=== PATIENT | female | born 1955 | race Caucasian/White ===

== ENCOUNTER 2017-01-27 11:39 | Inpatient (IN) ==
--- NOTE | 2017-01-26 21:04 | Discharge Summary ---
<Nena Salazar E - Last Filed: 01/26/17 21:01> Date of Encounter: 01/26/17 - Discharge Diagnosis (1) Osteoarthritis of left knee Priority: Primary Status: Chronic Qualifiers: Osteoarthritis type: unspecified Qualified Code(s): M17.12 - Unilateral primary osteoarthritis, left knee (2) Hypothyroidism Priority: Secondary Status: Chronic Qualifiers: Hypothyroidism type: unspecified Qualified Code(s): E03.9 - Hypothyroidism , unspecified (3) COPD (chronic obstructive pulmonary disease) Priority: Secondary Status: Chronic Qualifiers: COPD type: unspecified COPD Qualified Code(s): J44.9 - Chronic obstructive pulmonary disease, unspecified (4) HLD (hyperlipidemia) Priority: Secondary Status: Chronic Qualifiers: Hyperlipidemia type: unspecified Qualified Code(s): E78.5 - Hyperlipidemia , unspecified (5) HTN (hypertension) Priority: Secondary Status: Chronic Qualifiers: Hypertension type: unspecified Qualified Code(s): I10 - Essential (primary ) hypertension (6) Tobacco abuse Priority: Secondary Status: Chronic (7) CAD (coronary artery disease) Priority: Secondary Status: Acute Qualifiers: Coronary Disease-Associated Artery/Lesion type: unspecified vessel or lesion type [place] vs. transplanted heart: unspecified whether [place] or transplanted heart Associated angina: angina presence unspecified Qualified Code(s): I25.10 - Atherosclerotic heart disease of [place] coronary artery without angina pectoris (8) CHF (congestive heart failure) Priority: Secondary Status: Chronic Qualifiers: Congestive heart failure type: unspecified congestive heart failure type Congestive heart failure chronicity: unspecified congestive heart failure chronicity Qualified Code(s): I50.9 - Heart failure, unspecified (9) Osteoporosis Priority: Secondary Status: Chronic Qualifiers: Osteoporosis type: unspecified Presence of current pathological fracture: unspecified Qualified Code(s): M81.0 - Age-related osteoporosis without current pathological fracture (10) MEDARDO (obstructive sleep apnea) Priority: Secondary Status: Chronic (11) Depression Priority: Secondary Status: Chronic Qualifiers: Depression Type: unspecified Qualified Code(s): F32.9 - Major depressive disorder, single episode, unspecified (12) Diabetes mellitus Priority: Secondary Status: Chronic Qualifiers: Diabetes mellitus type: type 2 Diabetes mellitus complication status: with unspecified complications Diabetes mellitus mcfp insulin use: unspecified mcfp insulin use status Qualified Code(s): E11.8 - Type 2 diabetes mellitus with unspecified complications - Discharge Medications Home Medications: Azelastine 0.1% Nasal [place] [Astelin] 1 spray NS BID 08/26/16 [History] Buspirone HCl [Buspar] 15 mg PO BID 08/26/16 [History] Carvedilol [Coreg] 6.25 mg PO BIDWM 08/26/16 [History] Esomeprazole Magnesium [Nexium] 40 mg PO DAILY 08/26/16 [History] Ezetimibe [Zetia] 10 mg PO HS 08/26/16 [History] Fluticasone Propionate Nasal [Flonase] 1 spray NS BID 08/26/16 [History] Fluticasone/Salmeterol [Advair 500-50 Diskus] 1 puff IH BID 08/26/16 [History] Furosemide [Lasix] 40 mg PO DAILY PRN 08/26/16 [History] Gabapentin [Neurontin] 1,200 mg PO TID 08/26/16 [History] Ipratropium/Albuterol Sulfate [Combivent Respimat Inhal [place]] 1 puff IH QID [History] Melatonin [Melatin] 3 mg PO HS PRN 08/26/16 [History] Montelukast [Singulair] 10 mg PO HS 08/26/16 [History] Quetiapine Fumarate [Seroquel] 200 mg PO HS 08/26/16 [History] Ranitidine HCl [Heartburn Relief] 150 mg PO DAILY 08/26/16 [History] Rosuvastatin [Crestor] 40 mg PO HS 08/26/16 [History] Topiramate [Topamax] 50 mg PO HS 08/26/16 [History] Trazodone HCl 300 mg PO HS 08/26/16 [History] Aspirin Enteric Coated [Aspirin EC] 325 mg PO DAILY #21 tablet. 01/26/17 [Rx] OxyCODONE Immed Rel [Roxicodone 5 MG] 5 mg PO Q6HR PRN 7 Days #28 tablet [Rx] Aspirin [Lo-Dose Aspirin EC] 81 mg PO HS 01/27/17 [History] Levothyroxine [Synthroid] 150 mcg PO DAILY 01/27/17 [History] PARoxetine HCl [Paroxetine HCl] 20 mg PO DAILY 01/27/17 [History] Allergies/Adverse Reactions: 3 Allergy/AdvReac Type Severity Reaction Status Date / Time Sulfa (Sulfonamide Allergy Hives Verified 01/12/17 15:55 Antibiotics) aloe vera [From Flexall] AdvReac Gastrointestinal Verified 01/12/17 15:55 Upset celecoxib [From Celebrex] AdvReac Gastrointestinal Verified 01/12/17 15:55 Upset hydroxyzine [From Vistaril] AdvReac Gastrointestinal Verified 01/12/17 15:55 Upset menthol [From Flexall] AdvReac Gastrointestinal Verified 01/12/17 15:55 Upset Tizanidine [From Zanaflex] AdvReac Gastrointestinal Verified 01/12/17 15:55 Upset vitamin E (d-alpha AdvReac Gastrointestinal Verified 01/12/17 15:55 tocopherol) Upset [From Flexall] Primary care physician: Juanita Varela MD - Patient Status Disposition: Home, Self-Care Condition: Good - Discharge Instructions Follow Up With: Juanita Varela MD [Primary Care Provider] - - Hospital Course Hospital course: Ms. Ochoa is a 61 year old female - Time Spent with Patient Total time spent providing and/or coordinating discharge services: - VTE Documentation of Mechanical Device: Venous foot pump, device <Keyshawn Tobar - Last Filed: 01/29/17 06:28> Date of Encounter: 01/29/17 Time of Encounter: 06:27 - Discharge Diagnosis (1) Obesity (BMI 35.0-39.9 without comorbidity) Priority: Secondary Status: Chronic (2) Osteoarthritis of left knee Priority: Primary Status: Chronic Qualifiers: Osteoarthritis type: unspecified Qualified Code(s): M17.12 - Unilateral primary osteoarthritis, left knee (3) Hypothyroidism Priority: Secondary Status: Chronic Qualifiers: Hypothyroidism type: unspecified Qualified Code(s): E03.9 - Hypothyroidism , unspecified (4) COPD (chronic obstructive pulmonary disease) Priority: Secondary Status: Chronic Qualifiers: COPD type: unspecified COPD Qualified Code(s): J44.9 - Chronic obstructive pulmonary disease, unspecified (5) HLD (hyperlipidemia) Priority: Secondary Status: Chronic Qualifiers: Hyperlipidemia type: unspecified Qualified Code(s): E78.5 - Hyperlipidemia , unspecified (6) HTN (hypertension) Priority: Secondary Status: Chronic Qualifiers: Hypertension type: unspecified Qualified Code(s): I10 - Essential (primary ) hypertension (7) Tobacco abuse Priority: Secondary Status: Chronic (8) CAD (coronary artery disease) Priority: Secondary Status: Acute Qualifiers: Coronary Disease-Associated Artery/Lesion type: unspecified vessel or lesion type [place] vs. transplanted heart: unspecified whether [place] or transplanted heart Associated angina: angina presence unspecified Qualified Code(s): I25.10 - Atherosclerotic heart disease of [place] coronary artery without angina pectoris (9) CHF (congestive heart failure) Priority: Secondary Status: Chronic Qualifiers: Congestive heart failure type: unspecified congestive heart failure type Congestive heart failure chronicity: unspecified congestive heart failure chronicity Qualified Code(s): I50.9 - Heart failure, unspecified (10) Osteoporosis Priority: Secondary Status: Chronic Qualifiers: Osteoporosis type: unspecified Presence of current pathological fracture: unspecified Qualified Code(s): M81.0 - Age-related osteoporosis without current pathological fracture (11) MEDARDO (obstructive sleep apnea) Priority: Secondary Status: Chronic (12) Depression Priority: Secondary Status: Chronic Qualifiers: Depression Type: unspecified Qualified Code(s): F32.9 - Major depressive disorder, single episode, unspecified (13) Diabetes mellitus Priority: Secondary Status: Chronic Qualifiers: Diabetes mellitus type: type 2 Diabetes mellitus complication status: with unspecified complications Diabetes mellitus mcfp insulin use: unspecified mcfp insulin use status Qualified Code(s): E11.8 - Type 2 diabetes mellitus with unspecified complications (14) Status post total left knee replacement Priority: Primary Status: Chronic (15) Acute blood loss anemia Priority: Primary Status: Acute Primary care physician: Juanita Varela MD - Patient Status Functional capacity at discharge: uses cane/walker Overall status at discharge: patient is progressing back to baseline - Hospital Course Hospital course: Ms. Ochoa is a 61 year old female Status post left total knee replacement. The patient had an uneventful postoperative course. They received antibiotics and physical therapy and were discharged in stable condition. There will follow -up in the office in 2 weeks. Postop anemia A symptomatically - Time Spent with Patient Total time spent providing and/or coordinating discharge services:
--- NOTE | 2017-01-27 11:58 | Anesthesia Evaluation PreOp ---
Date of Encounter: 01/27/17 Time of Encounter: 12:08 - Past History Planned Operation: Left total knee arthroplasty Cardiac History: CHF, HTN, Hyperlipidemia, Cardiac Stent, Other (able to walk up a flight of stairs) Pulmonary History: Smoker, COPD HOME INSPECTOR History: Denies Any Significant HX Other Medical History: Other (Rheumatoid arthritis, BMI 39) Anesthesia History: No Prior Anesthetic Complications (except slow to emerge last time) Alcohol Use: none Drug use: none Medications and Allergies Azelastine 0.1% Nasal [place] [Astelin] 1 spray NS BID 08/26/16 [History] Buspirone HCl [Buspar] 7.5 mg PO DAILY 08/26/16 [History] Carvedilol [Coreg] 6.25 mg PO BIDWM 08/26/16 [History] Clopidogrel [Plavix] 75 mg PO DAILY 08/26/16 [History] Esomeprazole Magnesium [Nexium] 40 mg PO DAILY 08/26/16 [History] Ezetimibe [Zetia] 10 mg PO DAILY 08/26/16 [History] Fluticasone Propionate Nasal [Flonase] 1 spray NS BID 08/26/16 [History] Fluticasone/Salmeterol [Advair 500-50 Diskus] 1 puff IH BID 08/26/16 [History] Furosemide [Lasix] 40 mg PO BID 08/26/16 [History] Gabapentin [Neurontin] 450 mg PO DAILY 08/26/16 [History] Ipratropium/Albuterol Sulfate [Combivent Respimat Inhal [place]] 1 puff IH QID [History] Melatonin [Melatin] 3 mg PO HS PRN 08/26/16 [History] Montelukast [Singulair] 10 mg PO DAILY 08/26/16 [History] Paroxetine [Paxil] 30 mg PO DAILY 08/26/16 [History] Quetiapine Fumarate [Seroquel] 200 mg PO DAILY 08/26/16 [History] Ranitidine HCl [Heartburn Relief] 150 mg PO DAILY 08/26/16 [History] Rosuvastatin [Crestor] 40 mg PO HS 08/26/16 [History] Tizanidine HCl 2 mg PO DAILY 08/26/16 [History] Topiramate [Topamax] 50 mg PO DAILY 08/26/16 [History] Trazodone HCl 150 - 450 mg PO HS 08/26/16 [History] Aspirin Enteric Coated [Aspirin EC] 325 mg PO DAILY #21 tablet. 01/26/17 [Rx] OxyCODONE Immed Rel [Roxicodone 5 MG] 5 mg PO Q6HR PRN 7 Days #28 tablet [Rx] 3 Allergy/AdvReac Type Severity Reaction Status Date / Time Sulfa (Sulfonamide Allergy Hives Verified 01/12/17 15:55 Antibiotics) aloe vera [From Flexall] AdvReac Gastrointestinal Verified 01/12/17 15:55 Upset celecoxib [From Celebrex] AdvReac Gastrointestinal Verified 01/12/17 15:55 Upset hydroxyzine [From Vistaril] AdvReac Gastrointestinal Verified 01/12/17 15:55 Upset menthol [From Flexall] AdvReac Gastrointestinal Verified 01/12/17 15:55 Upset Tizanidine [From Zanaflex] AdvReac Gastrointestinal Verified 01/12/17 15:55 Upset vitamin E (d-alpha AdvReac Gastrointestinal Verified 01/12/17 15:55 tocopherol) Upset [From Flexall] - Meds/Allergy Pre-op Review Medications Reviewed: Yes Allergies Reviewed: Yes Beta Blockers on Current Med List: No Anesthesia Results - Labs Laboratory Tests 01/12/17 01/12/17 01/12/17 16:10 16:10 16:10 WBC 9.6 Hgb 13.0 Hct 40.5 Plt Count 245 PT 11.5 INR 1.1 APTT 26.1 Sodium 141 Potassium 3.8 Chloride 109 Carbon Dioxide 23 BUN 11 Creatinine 0.86 Est GFR ( Amer) > 60 Est GFR (Non-Af Amer) > 60 BUN/Creatinine Ratio 13 - Imaging EKG: report reviewed, image reviewed (SINUS RHYTHM ST DEVIATION AND MODERATE T- WAVE ABNORMALITY, CONSIDER ANTEROLATERAL ISCHEMIA ST DEVIATION AND MODERATE T- WAVE ABNORMALITY, CONSIDER INFERIOR ISCHEMIA) Additional studies: Cardiology clearance from Dr. Goyal, as patient has chronic EKG changes and was recently seen in clinic. Anesthesia Exam Last Vital Signs Temp 98.2 F 01/27/17 11:56 Pulse 56 01/27/17 11:56 Resp 18 01/27/17 11:56 BP 137/71 01/27/17 11:56 Pulse Ox 97 01/27/17 11:56 Weight: 103 kg - HEENT Pupil (Motor): Pupils equal, EOMI Mallampati: III Teeth: Edentulous Oral Opening: Greater than 3 - HOME INSPECTOR LOC: Oriented HOME INSPECTOR Motor: Normal RUE, Normal LUE, Normal RLE, Normal LLE, Normal Face - Cardiac Rhythm: Regular Murmur: None - Pulmonary Breath Sounds: bilateral Clear Respiratory Effort: Symmetrical Anesthesia Assess/Plan ASA Score: 3 Modified [place] Scale for Level of Consciousness: Cooperative, oriented, and tranquil Anesthetic Plan: General, Regional Monitoring Plan: Standard Monitors Recovery Plan: PACU
[2017-01-27] MEDS ORDERED: CeFAZolin Pre 2,000 MG/100 ML 2,000 MG/100 ML BAG IVPB ONE (11:59)
[2017-01-27] MEDS ORDERED: Plasma-Lyte A (PH 7.4) 1,000 ML IVC SCH (12:00)
[2017-01-27] MEDS ORDERED: Albuterol 2.5 MG/3 ML NEBULIZER ONE (12:12)
[2017-01-27] MEDS ORDERED: Albuterol 2.5 MG/3 ML NEBULIZER IH ONE (12:14)
[2017-01-27] MEDS ORDERED: Dexamethasone 4 MG/ML VIAL ONE (12:23)
[2017-01-27] MEDS ORDERED: Ondansetron 4 MG/2 ML VIAL ONE (12:23)
[2017-01-27] MEDS ORDERED: Lidocaine -MPF 2% 2 ML VIAL ONE (12:23)
[2017-01-27] MEDS ORDERED: *HR* Propofol 200 MG/20 ML VIAL IVP ONE (12:23)
[2017-01-27] MEDS ORDERED: *HR* Midazolam HCl 2 MG/2 ML VIAL ONE (12:23)
[2017-01-27] MEDS ORDERED: *HR* FentaNYL (PF) 100 MCG/2 ML VIAL ONE (12:23)
--- NOTE | 2017-01-27 12:35 | History & Physical Report ---
Date of Encounter: 01/27/17 Time of Encounter: 12:35 24 Hour HP Update - Instructions Instructions: If the History and Physical is less than 30 days old and was completed prior to A.M. admission and or procedure and has NOT been updated on calendar day of procedure please complete this update prior to performing procedure. - Update Patient reports changes in Medical Condition: No Changes in examination, assessment, or condition: No Changes in Medication: No Preop tests/diagnostics Reviewed: Yes Surgery Remains Indicated: Yes Consent for Planned Operative Procedure(s) Verified: Yes - Pre-Operative Checklist Preoperative Checklist Indicated: No Prophylactic Antibiotic Ordered: Yes Is VTE Prophylaxis Indicated?: Yes
[2017-01-27] MEDS ORDERED: *HR* Midazolam HCl 5 MG/5 ML VIAL IVP ONE (12:54)
[2017-01-27] MEDS ORDERED: ROPIVACAINE HCL/PF 0.5% 30 ML VIAL ONE (12:54)
--- NOTE | 2017-01-27 13:15 | Anesthesia Procedures ---
Date of Encounter: 01/27/17 Time of Encounter: 13:13 Procedures: Anesthesia - Nerve Block Procedure Date: 01/27/17 Time: 13:13 Allergies/Adv Reactions: sulfa, celecoxib, aloe vera, vistaril, menthol, zanaflex, vit e Pre-op Diagnosis: Left knee pain Surgical Procedure: Left total knee Checklist: Correct Patient Identifier, Correct procedure, History checked Correct side: Left Monitor Applied: EKG, BP, Pulse Oximetry Supplemental Oxygen via Nasal Cannula (L/min): 2 Sedation: Versed (mg): 2 Indication: Post Op Analgesia Pre-op Neuro Deficits: No Block Type: Femoral, Other (IPAC) Sterile Technique: Yes Ultrasound used: Yes Anatomy identified: Yes Visual spread of Local: Yes Neuro Stimulation: Yes Nerve Stimulator Range: 0.2 - 0.4 mA Blood on Needle Aspiration: No Smooth Injection of Local: Yes Pain with Injection of Local: No Prep: Chlorhexadine Needle: 22 x 50 mm Stimuplex Local: Ropivacaine Volume (cc): 40 Number of Attempts: 1 Complications: None/effective block
--- NOTE | 2017-01-27 14:12 | Orthopedic Operative Note ---
Date of procedure: 01/27/17 Pre-op diagnosis: Left knee arthritis Post-op diagnosis: same Procedure: Procedure: Left Total knee replacement Estimated blood loss: 400 cc Hardware: Metal and polyethylene replacement. Arthrex Femur: 5 Tibia: 5 PS insert: 18 Patella: 34 Exam Under anesthesia: Full flexion and extension no instability Procedural Notes: Grade 3 arthritic changes all 3 compartments. Operative procedure: The patient was brought to the operating room and placed on the operating room table. After general anesthesia was administered the operative knee was examined. Findings were noted in the exam under anesthesia. The operative extremity was prepped and draped in sterile surgical fashion. The patient received IV antibiotics prior to skin incision. A standard midline incision was made centered over the patella. The incision was made through the skin and subcutaneous tissue. A medial parapatellar tendon approach was performed. Care was taken to preserve tissue along the medial aspect of the patella. And to protect the patella tendon. The deep MCL was released off the medial tibia. The infra patella fat pad was excised. Knee was brought into flexion. Patient noted to have grade 3 arthritic changes all 3 compartments. The entry hole was made for the intramedullary femoral guide. The guide was seated in 6 degrees of valgus. Anterior cut was made followed by the distal cut. The ACL the PCL the medial and the lateral menisci were excised. The tibia was subluxed forward. The entry hole was made for the intramedullary tibial guide. Guide was seated to resect 2 mm off the more abnormal side. The knee was brought into flexion the distal femur was sized to a 5. The femoral guide was seated, the anterior cut was made followed by the posterior condylar cut, followed by the chamfer cuts. The finishing guide was seated the box cut was made and the lug holes were drilled. The tibia was sized to a 5, the tibial tray was seated and prepared with the large drill followed by the fin cutter. Trial reduction revealed full extension no varus valgus instability with the appropriate 18 PS Bette. The patella was everted and cut was made at the level of the insertion of the quadriceps and patella tendon. The patella was sized to 40 the guide was seated and the lug holes are drilled. Trial reduction revealed excellent patella tracking. All trial components were removed all bony surfaces were irrigated. The tibia was cemented first followed by the femur. The 18 PS Bette was seated and the knee was brought into full extension. The patella was cemented and held in place with the patellar holding clamp. After the cement had hardened, the knee sat for 2 minutes with a Betadine saline solution. The knee was closed by the PA. The knee was then irrigated out with 2 L of pulse irrigation. The extensor mechanism was closed with #2 FiberWire suture and #2 PDS suture. The subcutaneous tissue was then irrigated and closed deep with #1 PDS suture superficially with 0 PDS suture and skin was closed with skin yamini. The patient was then placed in a sterile dressing and a postoperative brace extubated and transferred to recovery room in stable condition. Anesthesia: GETA Surgeon: Keyshawn Tobar Condition: stable Disposition: PACU
[2017-01-27] MEDS ORDERED: *HR* Labetalol 20 MG/4 ML SYRINGE IVP PRN (14:31)
[2017-01-27] MEDS ORDERED: Ondansetron 4 MG/2 ML VIAL IVP ONE (14:31)
[2017-01-27] MEDS ORDERED: Ringers Solution, Lactated 1,000 ML IVC SCH (14:45)
[2017-01-27] MEDS: *HR* HYDROmorphone (PF) 1 MG/ML SYRINGE IVP PRN ×4 (14:51→15:38)
[2017-01-27 15:11] LABS: Hemoglobin 11.1 g/dL (11.5-15.4)
--- NOTE | 2017-01-27 15:27 | Anesthesia Evaluation Post Op ---
Date of Encounter: 01/27/17 Time of Encounter: 15:27 - Vital Signs Vital Signs: Last Vital Signs Temp 97.2 F L 01/27/17 15:15 Pulse 60 01/27/17 15:15 Resp 16 01/27/17 15:15 BP 124/61 01/27/17 15:15 Pulse Ox 94 01/27/17 15:15 - Lungs Lungs: Clear Ascult./Percussion - Airway Airway: Non-obstructed - Cardiovascular Regular Rate - Mental Status Mental Status: Alert & Oriented, Answers Appropriately - Pain Pain Scale: 4 - Nausea Vomiting Nausea Vomiting: Not Present - Hydration Hydration: NPO - Discharge PostOp Status: Transfer Patient to floor
[2017-01-27] MEDS ORDERED: Melatonin 3 MG TABLET PO PRN (17:11)
[2017-01-27] MEDS ORDERED: MOM Conc 10 ML UD.LIQ PO PRN (17:11)
[2017-01-27] MEDS ORDERED: Sennosides 8.6 MG TABLET PO PRN (17:11)
[2017-01-27] MEDS ORDERED: Dextrose Gel 15 GM PO PRN ×2 (17:11)
[2017-01-27] MEDS ORDERED: D5% in Water 1,000 ML IVC PRN (17:11)
[2017-01-27] MEDS ORDERED: *HR* Dextrose 50 % in Water (Syg) 50 ML SYRINGE IVP PRN (17:11)
[2017-01-27] MEDS ORDERED: Naloxone 0.4 MG/ML INJ IVP PRN (17:11)
[2017-01-27] MEDS ORDERED: ceFAZolin 2,000 MG in D5% in Water 100 ML IVPB SCH (17:11)
[2017-01-27] MEDS ORDERED: *HR* OxyCODONE Immed Rel 5 MG TABLET PO PRN (17:11)
[2017-01-27] MEDS ORDERED: Ondansetron 4 MG/2 ML VIAL IVP PRN (17:11)
[2017-01-27] MEDS ORDERED: Furosemide 40 MG TABLET PO PRN (17:11)
[2017-01-27] MEDS: Gabapentin 400 MG CAPSULE PO SCH ×2 (17:51→21:40)
[2017-01-27] MEDS ORDERED: *HR* Enoxaparin 30 MG/0.3 ML SYRINGE SQ SCH (18:00)
[2017-01-27] MEDS: Insulin LISPRO 300 UNITS/3 ML VIAL SQ SCH ×2 (18:45→21:52)
[2017-01-27] MEDS: *HR* OxyCODONE Immed Rel 5 MG TABLET PO PRN (18:53)
[2017-01-27] MEDS: *HR* Enoxaparin 30 MG/0.3 ML SYRINGE SQ SCH (18:53)
[2017-01-27] MEDS ORDERED: Temazepam 15 MG CAPSULE PO PRN (21:00)
[2017-01-27] MEDS: Aspirin Enteric Coated 81 MG Tablet PO SCH (21:40)
[2017-01-27] MEDS: Topiramate 25 MG TABLET PO SCH (21:40)
[2017-01-27] MEDS: traZODone 50 MG TABLET PO SCH (21:42)
[2017-01-27] MEDS: Fluticasone Propionate Nasal 50 MCG/SPRAY BOTTLE NS SCH (21:44)
[2017-01-27] MEDS: ceFAZolin 2,000 MG in D5% in Water 100 ML IVPB SCH (21:49)
[2017-01-27] MEDS: Azelastine 0.1% Nasal Spray 30 ML BOTTLE NS SCH (21:50)
[2017-01-27] MEDS: Budesonide/Formoterol 160/4.5 MDI IH SCH (22:57)
[2017-01-27] MEDS ORDERED: Ipratropium/Albuterol Neb 3 ML IH SCH (23:00)
[2017-01-27] MEDS: Ringers Solution, Lactated 1,000 ML IVC SCH (23:48)
[2017-01-28] MEDS: *HR* OxyCODONE Immed Rel 5 MG TABLET PO PRN ×3 (01:18→18:33)
[2017-01-28] MEDS: Ipratropium/Albuterol Neb 3 ML IH SCH ×4 (04:14→21:35)
[2017-01-28] MEDS: ceFAZolin 2,000 MG in D5% in Water 100 ML IVPB SCH (05:01)
[2017-01-28] MEDS: *HR* Enoxaparin 30 MG/0.3 ML SYRINGE SQ SCH ×2 (05:02→17:08)
[2017-01-28 05:09] LABS: Hematocrit 32.4 % (35.3-44.9); Hemoglobin 10.7 g/dL (11.5-15.4)
[2017-01-28 05:23] LABS: BUN/Creatinine Ratio 10 (6-26); Blood Urea Nitrogen 9 mg/dL (7-20); Calcium 8.7 mg/dL (8.6-10.8); Carbon Dioxide 24 mEq/L (19-29); Chloride 109 mEq/L (98-109); Glucose 152 mg/dL (70-99); Osmolality,Calculated 294 (280-300); Potassium 4.3 mEq/L (3.5-4.5); Sodium 141 mEq/L (136-145); eGFR For African Americans > 60 (> 60); eGFR For Non-African Americans > 60 (> 60)
--- NOTE | 2017-01-28 06:56 | Orthopedics Progress Note ---
Date of Encounter: 01/28/17 Time of Encounter: 06:56 - Assessment and Plan (1) Obesity (BMI 35.0-39.9 without comorbidity) Current Visit: Yes Status: Chronic (2) Osteoarthritis of left knee Current Visit: No Status: Chronic Qualifiers: Osteoarthritis type: unspecified Qualified Code(s): M17.12 - Unilateral primary osteoarthritis, left knee (3) Hypothyroidism Current Visit: No Status: Chronic Qualifiers: Hypothyroidism type: unspecified Qualified Code(s): E03.9 - Hypothyroidism , unspecified (4) COPD (chronic obstructive pulmonary disease) Current Visit: No Status: Chronic Qualifiers: COPD type: unspecified COPD Qualified Code(s): J44.9 - Chronic obstructive pulmonary disease, unspecified (5) HLD (hyperlipidemia) Current Visit: No Status: Chronic Qualifiers: Hyperlipidemia type: unspecified Qualified Code(s): E78.5 - Hyperlipidemia , unspecified (6) HTN (hypertension) Current Visit: No Status: Chronic Qualifiers: Hypertension type: unspecified Qualified Code(s): I10 - Essential (primary ) hypertension (7) Tobacco abuse Current Visit: No Status: Chronic (8) CAD (coronary artery disease) Current Visit: No Status: Acute Qualifiers: Coronary Disease-Associated Artery/Lesion type: unspecified vessel or lesion type [place] vs. transplanted heart: unspecified whether [place] or transplanted heart Associated angina: angina presence unspecified Qualified Code(s): I25.10 - Atherosclerotic heart disease of [place] coronary artery without angina pectoris (9) CHF (congestive heart failure) Current Visit: No Status: Chronic Qualifiers: Congestive heart failure type: unspecified congestive heart failure type Congestive heart failure chronicity: unspecified congestive heart failure chronicity Qualified Code(s): I50.9 - Heart failure, unspecified (10) Osteoporosis Current Visit: No Status: Chronic Qualifiers: Osteoporosis type: unspecified Presence of current pathological fracture: unspecified Qualified Code(s): M81.0 - Age-related osteoporosis without current pathological fracture (11) MEDARDO (obstructive sleep apnea) Current Visit: No Status: Chronic (12) Depression Current Visit: No Status: Chronic Qualifiers: Depression Type: unspecified Qualified Code(s): F32.9 - Major depressive disorder, single episode, unspecified (13) Diabetes mellitus Current Visit: No Status: Chronic Qualifiers: Diabetes mellitus type: type 2 Diabetes mellitus complication status: with unspecified complications 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 Afebrile vital signs stable. Operative extremity: Neurovascularly intact Dressing clean dry and intact [place] nontender Assessment and plan: Continue with postoperative care Hematocrit 32 Objective Vital signs: Vital Signs Temp Pulse Resp BP Pulse Ox 01/28/17 03:58 98.1 F 50 16 138/72 94 01/27/17 22:46 98.3 F 50 16 118/75 93 01/27/17 20:30 98.9 F 52 16 127/62 96 01/27/17 20:09 98.1 F 70 17 162/81 93 01/27/17 19:34 98.7 F 65 18 148/84 01/27/17 18:31 97.8 F 56 16 116/62 95 01/27/17 17:30 97.4 F L 65 15 111/69 97 01/27/17 17:01 97.5 F L 96 16 116/80 95 01/27/17 16:35 97.7 F 61 14 115/66 97 01/27/17 16:25 57 14 115/71 96 01/27/17 16:15 97.7 F 54 14 117/63 94 01/27/17 16:05 56 14 114/69 96 01/27/17 15:55 58 14 113/61 96 01/27/17 15:45 97.6 F 62 14 121/74 96 01/27/17 15:35 61 14 112/67 94 01/27/17 15:25 58 14 113/60 94 01/27/17 15:15 97.2 F L 60 16 124/61 94 01/27/17 15:05 59 16 127/73 96 01/27/17 14:55 60 16 134/63 99 01/27/17 14:45 97.6 F 63 16 126/74 99 01/27/17 13:09 54 16 129/67 96 01/27/17 12:53 50 18 134/74 97 01/27/17 11:56 98.2 F 56 18 137/71 97 Intake and Output 01/27/17 01/27/17 01/28/17 15:59 23:59 07:59 Intake Total 100 / 100 350 / 350 200 / 200 Output Total 400 / 400 200 / 200 0 / 0 Balance -300 / -300 150 / 150 200 / 200 Intake: IV Fluids 100 / 100 100 / 100 Ancef Premix 2,000 MG/100 ML 2, 100 / 100 000 mg In 100 ml @ 200 mls/hr IVPB PREOP ONE Rx#:[id number] Ancef 2,000 MG In Dextrose 5% 100 / 100 100 ML @ 200 mls/hr IVPB Q8H ALYSSA Rx#:[id number] Oral 250 / 250 200 / 200 Output: Urine 200 / 200 0 / 0 Estimated Blood Loss 400 / 400 Other: # Voids 1 Weight 103.419 kg 104.04 kg Blood Glucose* 265 Patient Weight 01/28/17 23:59 Weight 104.04 kg - Labs CBC & BMP: 01/28/17 04:48 01/28/17 04:48 Labs: Abnormal lab results Hgb 10.7 g/dL (11.5-15.4) L 01/28/17 04:48 Hct 32.4 % (35.3-44.9) L 01/28/17 04:48 Glucose 152 mg/dL (70-99) H 01/28/17 04:48 POC Glucose 265 (58-89) H 01/27/17 21:12 - VTE Documentation of Mechanical Device: Venous foot pump, device Consult Discharge Plan - Plan Referrals: Juanita Varela MD [Primary Care Provider] -
[2017-01-28] MEDS: Famotidine 20 MG TABLET PO SCH (08:52)
[2017-01-28] MEDS: Gabapentin 400 MG CAPSULE PO SCH ×3 (08:52→21:41)
[2017-01-28] MEDS: Azelastine 0.1% Nasal Spray 30 ML BOTTLE NS SCH ×2 (08:53→21:51)
[2017-01-28] MEDS: Insulin LISPRO 300 UNITS/3 ML VIAL SQ SCH ×4 (08:53→21:46)
[2017-01-28] MEDS: Fluticasone Propionate Nasal 50 MCG/SPRAY BOTTLE NS SCH ×2 (08:54→21:52)
[2017-01-28] MEDS: Budesonide/Formoterol 160/4.5 MDI IH SCH ×2 (10:31→21:35)
[2017-01-28] MEDS: Ringers Solution, Lactated 1,000 ML IVC SCH ×2 (11:25→14:33)
--- NOTE | 2017-01-28 12:25 | Event Note ---
Date of Encounter: 01/28/17 Time of Encounter: 12:23 PCR - Left TKR 01/27/17 POD#.1 Labs: H/H - stable Patient seen at bedside. Pain control: adequate Participating in PT. All questions and concerns addressed. Educated on use of incentive spirometer, ambulation, and hydration. Patient educated on post-operative restrictions and care. Addressed: see above D/C plan: [facility] - [place]
[2017-01-28] MEDS: Nicotine 21 MG PATCH.TD24 TD SCH (18:33)
[2017-01-28] MEDS: *HR* HYDROmorphone (PF) 1 MG/ML SYRINGE IVP PRN (19:25)
[2017-01-28] MEDS: Aspirin Enteric Coated 81 MG Tablet PO SCH (21:40)
[2017-01-28] MEDS: Topiramate 25 MG TABLET PO SCH (21:41)
[2017-01-28] MEDS: traZODone 50 MG TABLET PO SCH (21:41)
--- NOTE | 2017-01-28 22:05 | Physician Discharge Referral ---
<Nena Salazar E - Last Filed: 01/28/17 22:05> [facility] Referral Info Transfer To: ON [facility] OF [facility] Provider in Charge: Dr. Keyshawn Tobar - Diagnosis (1) Osteoarthritis of left knee Priority: Primary Status: Chronic (2) Hypothyroidism Priority: Secondary Status: Chronic (3) COPD (chronic obstructive pulmonary disease) Priority: Secondary Status: Chronic (4) HLD (hyperlipidemia) Priority: Secondary Status: Chronic (5) HTN (hypertension) Priority: Secondary Status: Chronic (6) Tobacco abuse Priority: Secondary Status: Chronic (7) CAD (coronary artery disease) Priority: Secondary Status: Acute (8) CHF (congestive heart failure) Priority: Secondary Status: Chronic (9) Osteoporosis Priority: Secondary Status: Chronic (10) MEDARDO (obstructive sleep apnea) Priority: Secondary Status: Chronic (11) Depression Priority: Secondary Status: Chronic (12) Diabetes mellitus Priority: Secondary Status: Chronic Expected Duration of Placement: <30 days Prognosis: Good Aware of Diagnosis: Patient Aware of Prognosis: Patient - Transfer Medications Home Medications: Azelastine 0.1% Nasal [place] [Astelin] 1 spray NS BID 08/26/16 [History] Buspirone HCl [Buspar] 15 mg PO BID 08/26/16 [History] Carvedilol [Coreg] 6.25 mg PO BIDWM 08/26/16 [History] Esomeprazole Magnesium [Nexium] 40 mg PO DAILY 08/26/16 [History] Ezetimibe [Zetia] 10 mg PO HS 08/26/16 [History] Fluticasone Propionate Nasal [Flonase] 1 spray NS BID 08/26/16 [History] Fluticasone/Salmeterol [Advair 500-50 Diskus] 1 puff IH BID 08/26/16 [History] Furosemide [Lasix] 40 mg PO DAILY PRN 08/26/16 [History] Gabapentin [Neurontin] 1,200 mg PO TID 08/26/16 [History] Ipratropium/Albuterol Sulfate [Combivent Respimat Inhal [place]] 1 puff IH QID [History] Melatonin [Melatin] 3 mg PO HS PRN 08/26/16 [History] Montelukast [Singulair] 10 mg PO HS 08/26/16 [History] Quetiapine Fumarate [Seroquel] 200 mg PO HS 08/26/16 [History] Ranitidine HCl [Heartburn Relief] 150 mg PO DAILY 08/26/16 [History] Rosuvastatin [Crestor] 40 mg PO HS 08/26/16 [History] Topiramate [Topamax] 50 mg PO HS 08/26/16 [History] Trazodone HCl 300 mg PO HS 08/26/16 [History] Aspirin Enteric Coated [Aspirin EC] 325 mg PO DAILY #21 tablet. 01/26/17 [Rx] OxyCODONE Immed Rel [Roxicodone 5 MG] 5 mg PO Q6HR PRN 7 Days #28 tablet [Rx] Aspirin [Lo-Dose Aspirin EC] 81 mg PO HS 01/27/17 [History] Levothyroxine [Synthroid] 150 mcg PO DAILY 01/27/17 [History] PARoxetine HCl [Paroxetine HCl] 20 mg PO DAILY 01/27/17 [History] Allergies/Adverse Reactions: 3 Allergy/AdvReac Type Severity Reaction Status Date / Time Sulfa (Sulfonamide Allergy Hives Verified 01/12/17 15:55 Antibiotics) aloe vera [From Flexall] AdvReac Gastrointestinal Verified 01/12/17 15:55 Upset celecoxib [From Celebrex] AdvReac Gastrointestinal Verified 01/12/17 15:55 Upset hydroxyzine [From Vistaril] AdvReac Gastrointestinal Verified 01/12/17 15:55 Upset menthol [From Flexall] AdvReac Gastrointestinal Verified 01/12/17 15:55 Upset Tizanidine [From Zanaflex] AdvReac Gastrointestinal Verified 01/12/17 15:55 Upset vitamin E (d-alpha AdvReac Gastrointestinal Verified 01/12/17 15:55 tocopherol) Upset [From Flexall] - Respiratory Orders Smoking Cessation: Smoking cessation has been advised. For more information, call the [employer] Tobacco Quit Line at 8-913-DHIN-NOW. - Ancillary Orders May use pressure relief devices daily prn, May go on VANESSA w/family/respon democrat w /meds at nurse discretion PRN, May consult with Dentist, Food Clerk, [employer] PRN - Mobility Orders Chair, Ambulate - Rehabiliation Orders Rehab Potential: Good Rehab Orders: ROM Exercises, Evaluation for Physical Therapy, Evaluation for Occupational Therapy Other: Total Knee replacement Precautions x 6 weeks Apply cold therapy wrap 3-6x/day for 20 minutes at a time. Encourage ambulation throughout the day and incentive spirometer 10x/hour. Elevate affected extremity above heart as tolerated. Brace: Wear knee immobilizer at night x 2 weeks. - Treatments Skin tear care topically daily PRN per policy List/Other: Opsite dressing, leave intact until first post-operative visit. If dressing becomes greater than 50% saturated, contact office, remove dressing and place appropriate dressing in its place. Do not allow for dressing to get wet. Stone in place, plan to remove at post-operative day #14-16. - Diet Orders Regular CERTIFICATION: I certify that the transfer of the above named patient to an Extended Care Facility is necessary for the continuing treatment of the diagnosis listed. The above information is true and accurate reflection of patient's current condition. Confidential - Redisclosure prohibited without a patient's written consent. <Keyshawn Tobar - Last Filed: 02/01/17 13:49> - Diagnosis (1) Obesity (BMI 35.0-39.9 without comorbidity) Status: Chronic (2) Osteoarthritis of left knee Status: Chronic (3) Hypothyroidism Status: Chronic (4) COPD (chronic obstructive pulmonary disease) Status: Chronic (5) HLD (hyperlipidemia) Status: Chronic (6) HTN (hypertension) Status: Chronic (7) Tobacco abuse Status: Chronic (8) CAD (coronary artery disease) Status: Acute (9) CHF (congestive heart failure) Status: Chronic (10) Osteoporosis Status: Chronic (11) MEDARDO (obstructive sleep apnea) Status: Chronic (12) Depression Status: Chronic (13) Diabetes mellitus Status: Chronic (14) Status post total left knee replacement Status: Chronic (15) Acute blood loss anemia Status: Acute - Respiratory Orders Smoking Cessation: Smoking cessation has been advised. For more information, call the [place] Tobacco Quit Line at 0-091-PXHT-NOW. CERTIFICATION: I certify that the transfer of the above named patient to an Extended Care Facility is necessary for the continuing treatment of the diagnosis listed. The above information is true and accurate reflection of patient's current condition. Confidential - Redisclosure prohibited without a patient's written consent.
[2017-01-29] MEDS: *HR* OxyCODONE Immed Rel 5 MG TABLET PO PRN ×4 (00:08→15:20)
[2017-01-29] MEDS: *HR* HYDROmorphone (PF) 1 MG/ML SYRINGE IVP PRN (02:24)
[2017-01-29] MEDS: Ipratropium/Albuterol Neb 3 ML IH SCH ×4 (04:07→21:38)
[2017-01-29] MEDS: *HR* Enoxaparin 30 MG/0.3 ML SYRINGE SQ SCH ×2 (05:17→16:53)
[2017-01-29 06:08] LABS: Hematocrit 28.5 % (35.3-44.9); Hemoglobin 9.5 g/dL (11.5-15.4)
[2017-01-29 06:23] LABS: BUN/Creatinine Ratio 11 (6-26); Blood Urea Nitrogen 11 mg/dL (7-20); Calcium 8.4 mg/dL (8.6-10.8); Carbon Dioxide 26 mEq/L (19-29); Chloride 105 mEq/L (98-109); Glucose 249 mg/dL (70-99); Osmolality,Calculated 294 (280-300); Potassium 4.1 mEq/L (3.5-4.5); Sodium 138 mEq/L (136-145); eGFR For African Americans > 60 (> 60); eGFR For Non-African Americans 59 (> 60)
[2017-01-29] MEDS: Famotidine 20 MG TABLET PO SCH (08:48)
[2017-01-29] MEDS: Gabapentin 400 MG CAPSULE PO SCH ×3 (08:48→19:53)
[2017-01-29] MEDS: Insulin LISPRO 300 UNITS/3 ML VIAL SQ SCH ×4 (08:49→21:02)
[2017-01-29] MEDS: Fluticasone Propionate Nasal 50 MCG/SPRAY BOTTLE NS SCH ×2 (08:55→19:57)
[2017-01-29] MEDS: Azelastine 0.1% Nasal Spray 30 ML BOTTLE NS SCH ×2 (08:55→19:57)
[2017-01-29] MEDS: Budesonide/Formoterol 160/4.5 MDI IH SCH ×2 (11:25→21:38)
[2017-01-29] MEDS: Nicotine 21 MG PATCH.TD24 TD SCH (16:53)
[2017-01-29] MEDS: Topiramate 25 MG TABLET PO SCH (19:53)
[2017-01-29] MEDS: Aspirin Enteric Coated 81 MG Tablet PO SCH (19:53)
[2017-01-29] MEDS: traZODone 50 MG TABLET PO SCH (19:53)
[2017-01-30] MEDS: Ipratropium/Albuterol Neb 3 ML IH SCH ×2 (04:06→11:12)
[2017-01-30] MEDS: *HR* Enoxaparin 30 MG/0.3 ML SYRINGE SQ SCH (05:23)
[2017-01-30] MEDS: *HR* OxyCODONE Immed Rel 5 MG TABLET PO PRN (05:23)
[2017-01-30 07:05] VITALS: BP 143/82
[2017-01-30] MEDS: Azelastine 0.1% Nasal Spray 30 ML BOTTLE NS SCH (08:14)
[2017-01-30] MEDS: Fluticasone Propionate Nasal 50 MCG/SPRAY BOTTLE NS SCH (08:14)
[2017-01-30] MEDS: Gabapentin 400 MG CAPSULE PO SCH (08:17)
[2017-01-30] MEDS: Famotidine 20 MG TABLET PO SCH (08:17)
--- NOTE | 2017-01-30 08:31 | Orthopedics Progress Note ---
Date of Encounter: 01/30/17 Time of Encounter: 08:30 Subjective Interval history: Patient was seen this morning doing well without complaints. Afebrile vital signs stable. Operative extremity: Neurovascularly intact Dressing clean dry and intact Calves nontender Assessment and plan: Continue with postoperative care; Anticipate discharge today. Objective Vital signs: Vital Signs Temp Pulse Resp BP Pulse Ox 01/30/17 07:01 97.8 F 77 18 143/82 94 01/30/17 03:45 98.2 F 78 15 147/76 95 01/29/17 22:36 98.8 F 80 15 120/68 96 01/29/17 18:55 99.4 F 76 18 147/79 94 01/29/17 15:24 98.0 F 76 16 165/77 96 01/29/17 11:10 98.5 F 74 16 158/74 93 Intake and Output 01/29/17 01/30/17 01/30/17 23:59 07:59 15:59 Intake Total 730 / 730 240 / 240 Output Total 800 / 800 1300 / 1300 Balance -70 / -70 -1060 / -1060 Intake: Oral 730 / 730 240 / 240 Output: Urine 800 / 800 1300 / 1300 Other: Meal Dinner Percent of Meal Consumed 75% # Voids 1 Weight 105 kg Blood Glucose* 242 193 - Labs CBC & BMP: 01/29/17 05:36 01/29/17 05:36 Labs: Abnormal lab results Hgb 9.5 g/dL (11.5-15.4) L 01/29/17 05:36 Hct 28.5 % (35.3-44.9) L 01/29/17 05:36 Est GFR (Non-Af Amer) 59 (> 60) L 01/29/17 05:36 Glucose 249 mg/dL (70-99) H 01/29/17 05:36 POC Glucose 242 (58-89) H 01/29/17 18:58 Calcium 8.4 mg/dL (8.6-10.8) L 01/29/17 05:36 - VTE Documentation of Mechanical Device: Venous foot pump, device Consult Discharge Plan - Plan Additional Instructions: Discharge Instructions: Total Knee Replacement Please call [facility] ([phone]), your Primary Care Physician, or report to the Emergency Room if you have any of the following symptoms: Nausea, vomiting, fever greater that 101.5, swelling, chest pain, shortness of breath, increased pain/redness/drainage/odor for your incision site, numbness/ tingling, or any other concerning symptoms. ACTIVITY:Weight-bearing as tolerated. You may progress off support (crutches or walker) as tolerated. MEDICATIONS: Upon discharge resume your home medications. Take all the medications as prescribed. Take a stool softener if taking narcotic pain medications. Stool softeners are only effective if you drink enough fluids. Drink 6-8 glass of water or fluids a day, unless this is not allowed for another health problem. Despite using stool softeners, if you haven't had a bowel movement in 3 days, please switch to a gentle laxative. Gentle laxatives are sold over the counter. You should have a bowel movement within 24 hours, if not call the office. You will be discharged from the hospital with a prescription for pain medication. You are encouraged to decrease the use of narcotic pain medication as tolerated. Should you require a refill, please call the office. [facility] prescribes narcotic pain medication for only 4-6 weeks after surgery. If you require pain medication beyond this time period, you may be referred to your Primary Care Physician or to the Pain Clinic for further evaluation. Plan ahead for refills on pain medication as many narcotics either need to be picked up at the office or mailed. It is best to call 48-72 hours in advance of needing a prescription refill so you don't run out of medication. To help control the post-operative pain, you may take NSAIDs (Aleve,Advil, Motrin, Ibuprofen, Naprosyn) or Tylenol as prescribed on the bottle in addition to the pain medication. ANTICOAGULATION (blood thinners): Continue your Aspirin, Lovenox or Coumadin as prescribed to help prevent a blood clot in the leg or in the lungs. As long as your incision remains dry and you tolerate the NSAIDs (Aleve, Advil, Motrin, ibuprofen, naprosyn), it is OK to use the NSAIDS while you are taking your anticoagulation medication. Should your incision start to drain, stop the NSAID and contact our office. Common symptoms of blood clot in the legs include: localized pain, swelling, calf tenderness, redness or discoloration of the skin. Blood clot in the lung symptoms include: shortness of breath, rapid pulse, sweating, and chest pain that worsens with deep breathing, coughing up blood, lightheadedness, feelings of anxiety. If you experience any of these symptoms notify your physician immediately, go to the emergency room, or if having trouble breathing, call 911. WOUND CARE: Leave the dressing on for 7 to 10days. You may change the dressing if it becomes saturated greater than 50%. Do not get the dressing wet at anytime. Wash your hands with antibacterial soap, rinse and dry prior to any wound care. If you have yamini the visiting nurse or rehab facility can remove the stapes 10-14 days after surgery and place steri-strips across the wound. Leave the steri-strips in place until they fall off on their won. You may let water from the shower run on top of the steri-strips. If you do not have a visiting nurse or rehab facility, you will need to return to the office at 10-14 days for the yamini to be removed. If you have itching or redness around the dressing call the office. FOLLOW-UP: Please follow up with your surgeon in the orthopedic clinic in 4 weeks from the day of surgery. If you have yamini that need to be removed, you will need to come back to the office in 10-14 days from the day of surgery. Referrals: Keyshawn Tobar MD [Partnered Physician] - 02/04/17 2:15 pm Juanita Varela MD [Primary Care Provider] -
[2017-01-30] MEDS: Insulin LISPRO 300 UNITS/3 ML VIAL SQ SCH (08:40)
[2017-01-30] MEDS ORDERED: FLUARIX QUAD 2017-18 36MOS UP/PF 0.5 ML SYRINGE IM ONE (09:48)
[2017-01-30] MEDS: Budesonide/Formoterol 160/4.5 MDI IH SCH (11:12)
== END 2017-01-30 14:23 | disposition home or self-care (01) | DRG 470 ==
LOC: SAMDAY 11:39 → 3NENU 17:11
PROVIDERS: ADMIT Orthopaedic Surgery; ATTEND Orthopaedic Surgery